=== PATIENT | female | born 1950 | race Caucasian/White ===

== ENCOUNTER 2017-07-16 07:41 | Emergency (ER) | payer MEDICARE, OTHER ==
--- NOTE | 2017-07-16 08:33 | ED Physician Documentation ---
General Adult - HISTORIAN Historian: patient - HPI Stated Complaint: spider bite Chief Complaint: General Adult Additional Information: apparent insect bite rt deltoid approx [id number] hrs this am burned and itched but better now Timing: better Severity: mild, moderate Further Comments: yes (did not see any offenting ceature or etiologic action) - ROS CONST: no problems EYES/ENT: none CVS/RESP: none GI/: none MS/SKIN/LYMPH: none - PAST HX Past History: hypertension Other History: diabetes Type 2 Surgeries/Procedures: hysterectomy Allergies/Adverse Reactions: Allergies Allergy/AdvReac Type Severity Reaction Status Date / Time valacyclovir Allergy Mild Hallucinati Verified 07/16/17 07:58 ons codeine [Codeine] Allergy Verified 07/16/17 07:58 Penicillins Allergy Verified 07/16/17 07:58 Sulfa (Sulfonamide Allergy Verified 07/16/17 07:58 Antibiotics) Clarisa-type Anestetics Allergy Uncoded 07/16/17 07:58 Meperidone Allergy Uncoded 07/16/17 07:58 Nirtofuran Derivitives Allergy Uncoded 07/16/17 07:58 Home Medications: Ambulatory Orders Medication Instructions Recorded Omeprazole 20 mg PO HS #30 capsule. 02/27/16 - SOCIAL HX Smoking History: non-smoker Alcohol Use: none Drug Use: none - FAMILY HX Family History: No - VITAL SIGNS Vital Signs: Vital Signs Temp Pulse Resp BP Pulse Ox 97.8 F 63 14 181/73 99 07/16/17 07:46 07/16/17 07:46 07/16/17 07:46 07/16/17 07:46 07/16/17 07:46 - REVIEWED ASSESSMENTS Nursing Assessment Reviewed: Yes Vitals Reviewed: Yes General Adult Physical Exam - PHYSICAL EXAM GENERAL APPEARANCE: mild distress EENT: eye inspection normal NECK: normal inspection, thyroid normal, supple RESPIRATORY: no resp distress, chest non-tender, breath sounds normal CVS: reg rate & rhythm, heart sounds normal ABDOMEN: soft, non-tender SKIN: warm/dry, normal color. No: cyanosis, diaphoresis, jaundice EXTREMITIES: non-tender, normal range of motion, no evidence of injury (cannot actually see puncture wound-slight induration probable) NEURO: oriented X3, CN's nml as tested, motor nml, sensation nml, mood/affect nml Discharge Clincal Impression: insect bite rt deltoid Referrals: Nidhi Ramírez, PRINCIPAL [employer]CHITECT [Primary Care Provider] - 2 Days Home Medications: Ambulatory Orders Omeprazole 20 mg PO HS #30 capsule. 02/27/16 Comments: perhaps claritin for itching-rted prn Condition: Good Disposition: 01 HOME, SELF-CARE Decision to Admit: NO Decision Time: 08:36
[2017-07-16 08:36] VITALS: BP 176/75
== END 2017-07-16 08:31 | disposition home or self-care (01) ==
LOC: ED 07:41
DX: S40.261A Insect bite (nonvenomous) of right shoulder, initial encounter (principal); X58.XXXA Exposure to other specified factors, initial encounter; Y93.9 Activity, unspecified; Y99.9 Unspecified external cause status
CPT/HCPCS: 99283

== ENCOUNTER 2018-02-22 12:20 | Emergency (ER) | payer MEDICARE, OTHER ==
[2018-02-22 12:46] VITALS: BP 148/81
--- NOTE | 2018-02-22 12:50 | ED Physician Documentation ---
Lower Extremity Problem - HISTORIAN Historian: patient - HPI Chief Complaint: Lower Extremity Problem Additional Information: Patient states that she has had previous problems with some sudden onset of swelling to the posterior aspect of the left knee. Comes and goes quickly. No precipitating factor noted. No modifying factors noted. No SOB or chest pain. Has some mild knee pain when it occurs. Is more prominent today then before. No sure if her calf is swelling or not. No pain with walking. No history of trauma to the leg. Location of Injury: L knee Onset: hours Timing: still present. denies: pain intermittent Severity: mild Quality: swelling. denies: tenderness Exacerbated By: nothing Relieved By: nothing Associated Symptoms: denies: chest pain, shortness of breath - ROS CONST: no problems. denies: fever MS/SKIN/LYMPH: joint pain (mld), leg swelling (posterior knee). denies: calf pain - PAST HX Past History: other (generalized OA, ) PE Risk Factors: hypertension Other History: diabetes Type 2 Surgeries/Procedures: other (colonic polypectomy) Immunizations: referred to PCP Allergies/Adverse Reactions: Allergies Allergy/AdvReac Type Severity Reaction Status Date / Time valacyclovir Allergy Mild Hallucinati Verified 02/22/18 12:46 ons codeine [Codeine] Allergy Verified 02/22/18 12:46 Penicillins Allergy Verified 02/22/18 12:46 Sulfa (Sulfonamide Allergy Verified 02/22/18 12:46 Antibiotics) Clarisa-type Anestetics Allergy Uncoded 02/22/18 12:46 Meperidone Allergy Uncoded 02/22/18 12:46 Nirtofuran Derivitives Allergy Uncoded 02/22/18 12:46 - SOCIAL HX Smoking History: non-smoker Alcohol Use: none Drug Use: none - FAMILY HX Family History: no significant history - VITAL SIGNS Vital Signs: Vital Signs Temp Pulse Resp BP Pulse Ox 97.4 F L 85 16 148/81 99 02/22/18 12:21 02/22/18 12:21 02/22/18 12:21 02/22/18 12:21 02/22/18 12:21 - REVIEWED ASSESSMENTS Nursing Assessment Reviewed: Yes Vitals Reviewed: Yes ED Results Lab/Radiology - Lab Results Lab Results: Lab Results 02/22/18 13:25 Sodium 144 mmol/L mmol/L (136-145) Potassium 4.0 mmol/L mmol/L (3.5-5.1) Chloride 105 mmol/L mmol/L (98-107) Carbon Dioxide 25 mmol/L mmol/L (22-30) BUN 14 mg/dL mg/dL (7-17) Creatinine 0.80 mg/dL mg/dL (0.52-1.04) Estimated Creat Clear 96 Est GFR ( Amer) > 60 (60 - ) Est GFR (Non-Af Amer) > 60 (60 - ) Glucose 107 mg/dL H mg/dL (74-106) Calcium 9.8 mg/dL mg/dL (8.4-10.2) Total Bilirubin 0.8 mg/dL mg/dL (0.2-1.3) AST 21 U/L U/L (15-46) ALT 32 U/L U/L (13-69) Alkaline Phosphatase 78 U/L U/L (38-126) Total Protein 7.5 g/dL g/dL (6.3-8.2) Albumin 4.5 g/dL g/dL (3.5-5.0) - Radiology Radiology Impressions: Examination: Plain film left knee History: PT STATES POSTERIOR LEFT HIP PAIN X 1 DAY. NO TRAUMA (Hx) Findings: 3 views of the left knee demonstrates tibial spine, medial, and patellar spurring. Medial joint space narrowing. No evidence for fracture. No joint effusion. Impression: Degenerative changes. No acute appearing osseous abnormality. - Orders Orders: ED Orders Category Date Time Status KNEE 3 VIEWS [RAD] Stat Exams 02/22/18 Ordered CMP Routine Lab 02/22/18 13:25 Completed THYROID PROFILE Routine Lab 02/22/18 13:25 Received THYROID STIMULATING HORMONE Routine Lab 02/22/18 13:25 Received Lower Extremity Problem - EXAM General Appearance: no distress Legs: bilateral: non-tender, normal inspection, normal range of motion, no evidence of injury Knees: right: non-tender, normal inspection, left: soft tissue tenderness, swelling (postrior knee area), bilateral: normal range of motion, no evidence of injury, N/A: deformity (none), ecchymosis (none) Ankle: bilateral: non-tender, normal inspection, normal range of motion, no evidence of injury Foot: bilateral foot: non-tender, normal inspection, normal range of motion, no evidence of injury Neuro/Tendon: normal sensation, normal motor functions, normal tendon functions , responds to pain, no evidence tendon injury EENT: no signs of dehydration RESPIRATORY: no resp distress, breath sounds normal. No: wheezes, rales, rhonchi CVS: reg rate & rhythm, heart sounds normal, equal pulses, no murmur, no gallop VASCULAR: no vascular compromise, pulses full/equal NEURO/PSYCH: oriented X3, CN's nml as tested, mood/affect nml, cognition normal Discharge Clincal Impression: Vallejo's cyst of knee Qualifiers: Laterality: left Qualified Code(s): M71.22 - Synovial cyst of popliteal space [ Vallejo], left knee Referrals: Nidhi Ramírez FNP [Primary Care Provider] - 2 Days Additional Instructions: Start taking Aleve 220mg tablets, take 2 tablets twice a day with food until swelling improves. If symptoms do not improve within the next 3 days or if they get worse to follow-up with your primary provider or return to the ED. Condition: Stable Disposition: 01 HOME, SELF-CARE Decision to Admit: NO Date of Decison to Admit: 02/22/18 Decision Time: 13:51
[2018-02-22 13:47] LABS: eGFR (Non-African) > 60
--- NOTE | 2018-02-22 17:48 | Diagnostic Imaging Report ---
MARY GRACE DOUGHERTY [facility] [address] [facility].[address] [id number] Report Submission Date: Feb 22, 2018 1:16:41 PM CDT Patient Study Name: CHANDAN DÍAZ V Date: Feb 22, 2018 12:52:04 PM CDT Modality Type: DX Gender: F Description: LOWER EXTREMITY : 50 Institution: [facility] Physician: MARY GRACE DOUGHERTY Examination: Plain film left knee History: PT STATES POSTERIOR LEFT HIP PAIN X 1 DAY. NO TRAUMA (Hx) Findings: 3 views of the left knee demonstrates tibial spine, medial, and patellar spurring. Medial joint space narrowing. No evidence for fracture. No joint effusion. Impression: Degenerative changes. No acute appearing osseous abnormality. Electronically signed on Feb 22, 2018 1:16:41 PM CDT by: Franco REED
[2018-02-22 22:21] LABS: T3-UPTAKE 29.2 % (25.4-41.2)
== END 2018-02-22 14:15 | disposition home or self-care (01) ==
LOC: ED 12:20
DX: M71.22 Synovial cyst of popliteal space [Baker], left knee (principal)
CPT/HCPCS: 73562; 80053; 84436; 84443; 84479; 99282

== ENCOUNTER 2019-10-26 09:07 | Outpatient (CLI) | payer MEDICARE, OTHER ==
--- NOTE | 2019-10-26 10:42 | Diagnostic Imaging Report ---
PATIENT MR#: [id number] PATIENT PATIENT NAME: CHANDAN DÍAZ V DATE OF : 1950 REFERRING PHYSICIAN: Nidhi Ramírez EXAM DATE: 10/26/2019 ACCESSION NUMBER: [id number] EXAM DESCRIPTION: US ABDOMEN LIMITED CLINICAL HISTORY: ULTRASOUND OF CYSTIC LESIONS IN ABDOMINAL WALL X2 YEARS COMPARISON: No study for comparison is available at the time of interpretation. TECHNIQUE: US anterior abdominal wall Focused ultrasound was performed in the region of concern of the anterior abdominal midline. The underlying soft tissues appear normal. No cystic or solid masses were identified by the ultrasou nd technologist. IMPRESSION: No masses or fluid collections in the region of concern. Read by: Dr. Wojciech Mayo Transcribed by: Wojciech Mayo Transcribed Date: 10/26/2019 10:41:08 AM Electronically signed by: Dr. Wojciech Mayo Date signed: 10/26/2019 10:41:54 AM
== END 2019-10-26 09:17 ==
LOC: RAD 09:07
PROVIDERS: ATTEND Nurse Practitioner Family
DX: Q61.9 Cystic kidney disease, unspecified (principal); C44.311 Basal cell carcinoma of skin of nose
CPT/HCPCS: 76705